=== PATIENT | male | born 1985 ===

== ENCOUNTER 2021-11-18 13:25 | Emergency (ER) | payer SELFPAY ==
[2021-11-18] MEDS ORDERED: TETRACAINE 0.5% OPHTH SOLN 4ML OU PRN (17:28)
[2021-11-18] MEDS ORDERED: FLUORESCEIN 1 MG STRIP OP ONE (17:28)
--- NOTE | 2021-11-18 18:08 | Emergency Department Report ---
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 He states he believes he got a piece of wood in his eye during work. He denies any vision changes and states there feels like there is something stuck in his eye. He denies being a contact lens wearer. -: Sudden Severity scale (0 -10): 8 Quality: sharp - Related Data Previous Rx's Medication Instructions Recorded Last Taken Type Acetaminophen/Codeine [Tylenol 1 tab PO Q6H PRN #12 tab 11/18/21 Unknown Rx /Codeine # 3 tab] Erythromycin [Erythromycin Ophth 1 cm OU Q3H 7 Days #1 tube 11/18/21 Unknown Rx Oint] Ibuprofen [Motrin 800 MG tab] 800 mg PO Q8HR PRN #20 tablet 11/18/21 Unknown Rx Allergies Allergy/AdvReac Type Severity Reaction Status Date / Time No Known Allergies Allergy Verified 11/18/21 13:42 ED Review of Systems ROS: Stated complaint: SOMETHING IN LT EYE Other details as noted in HPI Eyes: eye pain. denies: eye discharge, vision change Skin: denies: change in color Neurological: denies: headache ED Past Medical Hx - Past Medical History Previous Medical History?: No - Medications Home Medications: Home Medications Medication Instructions Recorded Confirmed Last Taken Type Acetaminophen/Codeine [Tylenol 1 tab PO Q6H PRN #12 tab 11/18/21 Unknown Rx /Codeine # 3 tab] Erythromycin [Erythromycin Ophth 1 cm OU Q3H 7 Days #1 tube 11/18/21 Unknown Rx Oint] Ibuprofen [Motrin 800 MG tab] 800 mg PO Q8HR PRN #20 tablet 11/18/21 Unknown Rx ED Physical Exam - General Limitations: No Limitations General appearance: alert, in no apparent distress - Head Head exam: Present: atraumatic, normocephalic - Eye Eye exam: Present: PERRL, EOMI (No pain with EOMs), conjunctival injection (Left eye lid everted and swept and very tiny piece of wood noted and removed; approximately 1 cm corneal abrasion noted at upper border of the left iris). Absent: periorbital swelling - Respiratory Respiratory exam: Absent: respiratory distress - Cardiovascular Cardiovascular Exam: Present: regular rate - Neurological Exam Neurological exam: Present: alert, oriented X3, normal gait - Psychiatric Psychiatric exam: Present: normal affect, normal mood - Skin Skin exam: Present: warm, dry, intact, normal color. Absent: rash ED Course Vital Signs 11/18/21 13:39 Temperature 98.7 F Pulse Rate 58 L Respiratory 17 Rate Blood Pressure 131/72 O2 Sat by Pulse 97 Oximetry ED Medical Decision Making - Medical Decision Making 35-year-old male patient presents with complaints of left eye pain today. He states he believes he got a piece of wood in his eye during work. He denies any vision changes and states there feels like there is something stuck in his eye. He denies being a contact lens wearer. Corneal abrasion noted in left eye. Will treat with erythromycin and pain meds. Recommend follow-up with ophthalmology, referral provided. Patient is well- appearing and stable for discharge home. Strict return precautions discussed in detail with patient who verbalizes understanding Critical care attestation.: If time is entered above; I have spent that time in minutes in the direct care of this critically ill patient, excluding procedure time. ED Disposition Clinical Impression: Corneal abrasion, left Disposition: 01 HOME / SELF CARE / HOMELESS Is pt being admited?: No Condition: Stable Instructions: Corneal Abrasion, [id number] Prescriptions: Erythromycin [Erythromycin Ophth Oint] 1 cm OU Q3H 7 Days #1 tube Ibuprofen [Motrin 800 MG tab] 800 mg PO Q8HR PRN #20 tablet PRN Reason: Pain, Moderate (4-6) Acetaminophen/Codeine [Tylenol /Codeine # 3 tab] 1 tab PO Q6H PRN #12 tab PRN Reason: Pain , Severe (7-10) Referrals: SMITH HICKEY MD [Staff Physician] - 2-3 Days Print Language: YI
[2021-11-18 18:32] VITALS: BP 129/78
== END 2021-11-18 18:32 | disposition home or self-care (01) ==
LOC: ED 13:25
DX: S05.02XA Injury of conjunctiva and corneal abrasion without foreign body, left eye, initial encounter (principal); Z79.899 Other long term (current) drug therapy; X58.XXXA Exposure to other specified factors, initial encounter; Y93.89 Activity, other specified; Y92.89 Other specified places as the place of occurrence of the external cause; Y99.8 Other external cause status
CPT/HCPCS: 99282